=== PATIENT | female | born 1995 | race Caucasian/White ===

== ENCOUNTER 2017-05-31 20:06 | Emergency (ER) | payer MEDICAID ==
[~2017-05-31] VITALS: Ht 162.6 cm; Wt 112.9 kg
[2017-05-31 21:07] LABS: BASOPHIL % 0.3 % (0-2); PLATELET COUNT 299 x10^3mcL (130-400); RED CELL DISTRIBUTION WIDTH 13.2 % (11.5-14.5)
[2017-05-31 21:13] LABS: CALCIUM 8.7 mg/dL (8.5-10.1); CARBON DIOXIDE 29.2 mmol/L (21-32); CHLORIDE SERUM 105 mmol/L (98-107); CREATININE SERUM 0.7 mg/dL (0.6-1.0); GFR1 > 60 mL/min; GLUCOSE SERUM 109 mg/dL (74-106); POTASSIUM SERUM 3.5 mmol/L (3.5-5.1); SODIUM SERUM 139 mmol/L (136-145)
[2017-05-31 22:09] VITALS: BP 120/75
== END 2017-05-31 22:09 | disposition home or self-care (01) ==
LOC: ED 20:06
PROVIDERS: Emergency Medicine
DX: R00.2 Palpitations (principal); R11.0 Nausea; F41.9 Anxiety disorder, unspecified
CPT/HCPCS: 36415

== ENCOUNTER 2018-05-30 19:27 | Emergency (ER) | payer MEDICAID ==
[~2018-05-30] VITALS: Ht 162.6 cm; Wt 120.8 kg
[2018-05-30 19:52] VITALS: Ht 162.6 cm; Wt 120.8 kg
[2018-05-30 22:02] VITALS: BP 142/97
== END 2018-05-30 22:02 | disposition home or self-care (01) ==
LOC: ED 19:27
DX: R51 Headache (principal)
CPT/HCPCS: J1885

== ENCOUNTER 2019-03-30 08:42 | Emergency (ER) | payer BC ==
[~2019-03-30] VITALS: Ht 162.6 cm; Wt 126.1 kg
[2019-03-30 08:58] VITALS: Ht 162.6 cm; Wt 126.1 kg
[2019-03-30 10:58] VITALS: BP 140/75
== END 2019-03-30 10:58 | disposition home or self-care (01) ==
LOC: ED 08:42
DX: H61.21 Impacted cerumen, right ear (principal); E66.01 Morbid (severe) obesity due to excess calories; Z68.42 Body mass index [BMI] 45.0-49.9, adult; Z87.19 Personal history of other diseases of the digestive system